=== PATIENT | female | born 1970 | race Caucasian/White ===

== ENCOUNTER 2022-08-26 05:00 | Day surgery (SDC) | payer OTHER ==
[~2022-08-26] VITALS: Ht 162.6 cm; Wt 64.7 kg
[2022-08-26] MEDS ORDERED: MIDAZOLAM HCL 5 MG/5 ML VIAL ONE (06:35)
[2022-08-26] MEDS ORDERED: fentaNYL CITRATE/PF 100 MCG/2 ML AMP ONE (06:35)
[2022-08-26 06:44] LABS: HCG,QUAL RESULT NEGATIVE (NEGATIVE)
[2022-08-26] MEDS ORDERED: MEPERIDINE 50 MG/ML VIAL ONE (07:26)
[2022-08-26 11:46] VITALS: BP_SYST 122
== END 2022-08-26 09:33 | disposition home or self-care (01) ==
LOC: SMU 05:00 → SDS 05:00
PROVIDERS: ATTEND Internal Medicine Gastroenterology
DX: Z12.11 Encounter for screening for malignant neoplasm of colon (principal); K64.9 Unspecified hemorrhoids; E78.5 Hyperlipidemia, unspecified; G47.00 Insomnia, unspecified
CPT/HCPCS: 45378; 87426; 84703; 36415; 99152; G0378; J2250; J2175; J3010